=== PATIENT | female | born 1985 | race Two or more races ===

== ENCOUNTER 2022-11-04 14:12 | Emergency (ER) | payer OTHER ==
[~2022-11-04] VITALS: Ht 160 cm; Wt 70.3 kg
--- NOTE | 2022-11-04 14:18 | NUR ---
BIB [facility] FROM HOME PT FELT THE URGE TO URINATE AND THREW UP BRIGHT RED BLOOD AND HAS HAD NONSTOP VAGINAL BLEEDING, 6 WEEKS AGO. PT HAS HX OF CERVICAL CANCER. PT ATTACHED TO MONITOR, AWAITING MD CAMPOS.
--- NOTE | 2022-11-04 14:53 | NUR ---
URINE COLLECTED AND SENT TO THE LAB
[2022-11-04] MEDS ORDERED: KETOROLAC TROMETHAMINE 15 MG/ML VIAL ONE ×2 (15:36→20:53)
[2022-11-04 15:52] LABS: COLOR,URINE RED (YELLOW); UROBILINOGEN,URINE NO EU/dL (0.2)
[2022-11-04 15:57] LABS: BACTERIA,URINE None seen /HPF (None Seen); RBC,URINE TOO NUMEROUS TO COUN /HPF (0-2)
[2022-11-04] MEDS ORDERED: KETOROLAC TROMETHAMINE INJ 30 MG/ML VIAL IV ONE ×2 (16:00→21:00)
[2022-11-04 16:27] LABS: BASOPHILS % (AUTO) 0.2 % (0.0-2.0); EOSINOPHILS % (AUTO) 0.4 % (0.0-6.0); HEMATOCRIT 29 % (33-45); HEMOGLOBIN 9.1 g/dL (11.5-14.8); LYMPHOCYTES % (AUTO) 17.9 % (20.0-44.0); MEAN CORPUSCULAR HGB CONC 31 g/dl (31.0-36.0); MEAN CORPUSCULAR VOLUME 83 fL (82-100); MONOCYTES # (AUTO) 0.5 K/uL (0.1-1.30); MONOCYTES % (AUTO) 4.3 % (2.0-12.0); NEUTROPHILS # (AUTO) 8.5 K/uL (1.8-8.9); NEUTROPHILS % (AUTO) 77.2 % (43.0-81.0); PLATELET COUNT (AUTO) 217 K/uL (150-450); RED BLOOD CELL COUNT(AUTO) 3.54 MIL/uL (4.0-5.2); WHITE BLOOD COUNT (AUTO) 11.1 K/uL (4.3-11.0)
[2022-11-04 16:39] LABS: CALCIUM, SERUM 8.1 mg/dL (8.5-10.1); CREATININE 0.8 mg/dL (0.6-1.3); POTASSIUM 4.7 mmol/L (3.5-5.1)
--- NOTE | 2022-11-04 17:29 | NUR ---
[facility] [place] [phone]
[2022-11-04] MEDS ORDERED: CT SWABBABLE VALVE TRANS SET 1 EA INFUS.SET MC ONE (18:52)
[2022-11-04] MEDS ORDERED: IV NS 0.9% 250 ML IV ONE (18:52)
[2022-11-04] MEDS ORDERED: IOHEXOL-300 100 ML VIAL IV ONE (18:52)
[2022-11-04 19:25] LABS: BASOPHILS % (AUTO) 0.1 % (0.0-2.0); EOSINOPHILS % (AUTO) 0.3 % (0.0-6.0); HEMATOCRIT 28 % (33-45); HEMOGLOBIN 8.6 g/dL (11.5-14.8); LYMPHOCYTES # (AUTO) 2.7 K/uL (0.8-4.8); LYMPHOCYTES % (AUTO) 22.3 % (20.0-44.0); MEAN CORPUSCULAR HGB CONC 31 g/dl (31.0-36.0); MEAN CORPUSCULAR VOLUME 84 fL (82-100); MONOCYTES # (AUTO) 0.5 K/uL (0.1-1.30); NEUTROPHILS # (AUTO) 8.9 K/uL (1.8-8.9); NEUTROPHILS % (AUTO) 73.3 % (43.0-81.0); PLATELET COUNT (AUTO) 208 K/uL (150-450); WHITE BLOOD COUNT (AUTO) 12.2 K/uL (4.3-11.0)
--- NOTE | 2022-11-04 21:16 | NUR ---
[facility] PAGED-WAITING FOR CALL BACK
--- NOTE | 2022-11-04 21:31 | NUR ---
[address], DR CASSIDY ON THE PHONE WITH DR. JUSTICE
--- NOTE | 2022-11-04 23:48 | NUR ---
SPOKE TO KULWINDER AT [facility] , PATIENT IS GOING TO BE TRASFERRED TO A [facility], POSSIBLY [facility]. DR JUSTICE MADE AWARE. WILL WAIT FOR TRANSFER INFO
[2022-11-05] MEDS ORDERED: MORPHINE SULFATE INJ 2 MG/ML DISP.SYRIN IV ONE (00:30)
[2022-11-05] MEDS ORDERED: KETOROLAC TROMETHAMINE INJ 30 MG/ML VIAL IV ONE (00:30)
[2022-11-05] MEDS ORDERED: MORPHINE SULFATE INJ 4 MG/ML DISP.SYRIN ONE (00:31)
--- NOTE | 2022-11-05 00:42 | NUR ---
PT GOT ACCEPTED AT [facility] UNDER CARE OF SOTERO HERNANDES, GOING TO ER. ALS PRN ETA: [id number] NUMBER FOR REPORT: [phone]
--- NOTE | 2022-11-05 02:01 | NUR ---
CALLED [facility] FOR REPRT. PER CHARGE NURSE, JOAN COMBS TO SEND THE PT.
--- NOTE | 2022-11-05 02:15 | NUR ---
PRN @ bedside for patient transport.
--- NOTE | 2022-11-05 02:24 | NUR ---
TRANSFERRED TO [facility] UNDER ACLS
[2022-11-05 02:31] VITALS: BP 110/60
== END 2022-11-05 02:32 | disposition home or self-care (01) ==
LOC: ER 14:36
DX: O03.4 Incomplete spontaneous abortion without complication (principal); D64.9 Anemia, unspecified; R42 Dizziness and giddiness
CPT/HCPCS: 99285; 74177; 96374; 76856; 96376; 85025 ×2; 80048; 84703; 81001; 36415; 85730; 84702; 96375; J7050; Q9967; J1885 ×2; J2270